=== PATIENT | male | born 1960 | race Caucasian/White ===

== ENCOUNTER → 2018-06-05 | Outpatient (CLI) | payer OTHER ==
--- NOTE | 2018-06-05 17:47 | Diagnostic Imaging Report ---
INDICATION: 57-year-old male with abnormal bone in radiographs. COMPARISON: None. FINDINGS: AP Spine L1-L4: [BMD (g/cm2): 1.453] [T-Score: 1.8] [Z-Score: 1.3] [BMD Previous: N/A] [BMD % Change: N/A] LT Hip Neck: [BMD (g/cm2): 1.116] [T-Score: 0.4] [Z-Score: 0.6] LT Hip Total: [BMD (g/cm2):1.143] [T-Score:0.3] [Z-Score: 0.2] [BMD Previous: N/A] [BMD % Change: N/A] RT Hip Neck: [BMD (g/cm2):1.167] [T-Score:0.7] [Z-Score:1.0] RT Hip Total: [BMD (g/cm2):1.183] [T-score:0.6] [Z-Score:0.5] [BMD Previous:N/A] [BMD % Change:N/A] *Indicates significant change from prior examination based on 95% confidence level. World Health Organization criteria for BMD interpretation classify patients as Normal (T-score at or above -1.0), Osteopenic (T-score between -1.0 and -2.5) or Osteoporotic (T-score at or below -2.5). LIMITATIONS AND MODIFICATION: Degenerative changes of the lumbar spine may falsely elevate bone density. FRACTURE RISK (FRAX SCORE): Not applicable. IMPRESSION: 1. Normal bone mineral density. 2. Baseline examination. 3. See below National Osteoporosis Foundation guidelines on when to potentially initiate pharmacologic therapy. Based on the National Osteoporosis Foundation Guidelines, pharmacologic treatment should be initiated in any of the following, unless clinical conditions suggest otherwise: * Any patient with prior fragility fracture of the hip or vertebrae. A spine fracture indicates 5X risk for subsequent spine fracture and 2X risk for subsequent hip fracture. * Osteoporosis (T-score <-2.5). * Postmenopausal women and men age 50 and older with low bone mass/osteopenia (T-score between -1.0 and -2.5) by DXA and 10-year major osteoporotic fracture greater than 20% or a 10-year probability of hip fracture greater than 3%. These fracture risks are supplied above in the FRAX score, if applicable. * Clinician judgement and/or patient preferences may indicate treatment for people with 10-year fracture probabilities above or below these levels. Dictated on workstation # [id number]
== END ==
LOC: RAD 11:02
PROVIDERS: ATTEND Family Medicine
DX: R93.7 Abnormal findings on diagnostic imaging of other parts of musculoskeletal system (principal)
CPT/HCPCS: 77080

== ENCOUNTER 2021-04-11 06:18 | Outpatient (CLI) | payer OTHER ==
[~2021-04-11] VITALS: Ht 185.4 cm; Wt 112.5 kg
[2021-04-11] MEDS ORDERED: ALLO300T2 PO (12:36)
== END 2021-04-11 16:17 | disposition home or self-care (01) ==
LOC: PREOP 06:18
PROVIDERS: ATTEND Surgery
DX: Z01.818 Encounter for other preprocedural examination (principal)

== ENCOUNTER 2021-04-21 10:27 | Day surgery (SDC) | payer OTHER ==
[2021-04-21] VITALS (10 sets, daily range): BP systolic 106–119; BP diastolic 60–77
[~2021-04-21] VITALS: Ht 185.4 cm; Wt 112.5 kg
[~2021-04-21 10:27] MED LIST: ALLO300T2 PO
[2021-04-21] MEDS ORDERED: NS IV 500 ML 500 ML ONE (10:33)
[2021-04-21] MEDS ORDERED: NS IV 500 ML 500 ML IV PRN (10:45)
[2021-04-21] MEDS ORDERED: fentaNYL INJ 100 MCG/2 ML AMP IVP ONE (10:45)
[2021-04-21] MEDS ORDERED: MIDAZOLAM 5 MG/5 ML (VERSED) VIAL IV ONE (10:45)
[2021-04-21] MEDS ORDERED: LIDOCAINE JELLY 2% 6 ML SYRINGE MM PRN (10:45)
[2021-04-21] MEDS ORDERED: fentaNYL INJ 100 MCG/2 ML AMP ONE ×2 (11:12→11:40)
[2021-04-21] MEDS ORDERED: LIDOCAINE JELLY 2% 6 ML SYRINGE ONE (11:13)
[2021-04-21] MEDS ORDERED: MIDAZOLAM 5 MG/5 ML (VERSED) VIAL ONE ×2 (11:13→11:40)
--- NOTE | 2021-04-21 11:16 | Conscious Sedation/ASA ---
Conscious Sedation Pre-Proced Time 11:00 ASA Score 2 For ASA 3 and 4: Consider anesthesia and medical clearance. Also, for patients with a history of failed moderate sedation consider anesthesia. Airway Lungs Heart ASA score ASA 1: a normal healthy patient ASA 2: a patient with a mild systemic disease (mid diabetes, controlled hypertension, obesity ASA 3: a patient with a severe systemic disease that limits activity (angina, COPD, prior Myocardial infarction) ASA 4: a patient with an incapacitating disease that is a constant threat to life (CHF, renal failure) ASA 5: a moribund patient not expected to survive 24 hrs. (ruptured aneurysm) ASA 6: a declared brain- patient whose organs are being harvested. For emergent operations, add the letter E after the classification Mallampati Classification Grade 2 Sedation Plan Analgesia, Amnesia, Plan communicated to team members, Discussed options with patient/fam, Discussed risks with patient/fam The patient is an appropriate candidate to undergo the planned procedure, sedation, and anesthesia. The patient immediately re-assessed prior to indication. BASSAM BULL MD Apr 21, 2021 11:16
--- NOTE | 2021-04-21 11:17 | Progress Note-Pre Operative ---
Pre-Operative Progress Note H&P Reviewed The H&P was reviewed, patient examined and no changes noted. Date Seen by Provider: Apr 21, 2021 Time Seen by Provider: 11:00 Date H&P Reviewed: Apr 21, 2021 Time H&P Reviewed: 11:00 Pre-Operative Diagnosis: screening BASSAM Ghotra MD Apr 21, 2021 11:17
--- NOTE | 2021-04-21 11:19 | Discharge Inst-Surgical ---
D/C Lap Instructions-JORGITO Follow Up Activity as tolerated High Fiber Diet 25g or more per day Avoid Alcohol, Caffeine, Spicy [place] and Acid foods. Drink 64 fluid oz or more of fluids per day. Symptoms to Report: Fever over 101 degree F, Nausea/Vomiting If any problems/questions: Contact your physician or go to Emergency Room BASSAM BULL MD Apr 21, 2021 11:19
[2021-04-21] MEDS ORDERED: ONDANSETRON 4 MG/2 ML (SDV) Z0FRAN IVP PRN (11:30)
[2021-04-21] MEDS ORDERED: ONDANSETRON 4 MG (ZOFRAN) ORAL DISSOLVE TAB PO PRN (11:30)
--- NOTE | 2021-04-21 11:55 | Progress Note-Post Operative ---
Post-Operative Progess Note Surgeon (s)/Board Member (s) Surgeon BASSAM BULL MD Board Member: none Pre-Operative Diagnosis screening colo Post-Operative Diagnosis mild-mod sigmoid diverticulosis. Procedure & Operative Findings Date of Procedure 04/21/21 Procedure Performed/Findings colonoscopy. Anesthesia Type cs Estimated Blood Loss Estimated blood loss (mL): minimal Specimens/Packing Specimens Removed none BASSAM BULL MD Apr 21, 2021 11:55
--- NOTE | 2021-04-21 16:57 | OPERATIVE REPORT ---
DATE OF SERVICE: 04/21/2021 ATTENDING MORGUE KEEPER: [facility]. PREOPERATIVE DIAGNOSIS: Screening colonoscopy. POSTOPERATIVE DIAGNOSIS: Mild to moderate sigmoid diverticulosis. PROCEDURE PERFORMED: Colonoscopy. SURGEON: Bassam Bull MD. ANESTHESIA: Conscious sedation. ESTIMATED BLOOD LOSS: Minimal. FINDINGS: Same as postoperative diagnoses. DISPOSITION: The patient tolerated the procedure well. INDICATIONS FOR PROCEDURE: The patient is a 60-year-old male known to us. We had done a colonoscopy on him in 2014. He was found to have mild hemorrhoids as well as two small polyps of the rectum as well as mild sigmoid diverticulosis. Biopsy was consistent with a benign hyperplastic polyp. He does not have any direct family history of colon cancer; however, there are several cancers throughout his family with his mother having breast cancer and a maternal grandfather having colon cancer. DESCRIPTION OF PROCEDURE: The patient was brought to the endoscopy suite and laid in the left lateral decubitus position. After adequate IV pain and sedative medications and conscious sedation anesthesia, a digital rectal examination was performed. No significant hemorrhoids were identified. Normal sphincter tone was felt and there were no palpable masses. Prostate gland was palpable and appeared to be normal. The endoscope was then intubated and anus and rectum gently insufflated. The endoscope was then advanced to the valves of [place] of the rectum with no polyps or any neoplasms identified. We then proceeded through the sigmoid colon, where a mild to moderate sigmoid diverticulosis identified. The endoscope was then advanced through the remainder of the descending, transverse, and ascending colon to the cecum, which were normal. No polyps or any neoplasms were identified. The endoscope was then slowly withdrawn while taking a second look and suctioning of residual air with no additional findings. The patient tolerated the procedure well. We will recommend the necessary lifestyle and dietary accommodation including the addition of a fiber supplement, which should equal or exceed 30 grams daily as well as significant amounts of water to promote soft stools on a daily basis. He does not have any first-degree relatives with a history of colon cancer; however, does have a family history of other types of cancer and he may choose between proceeding with followup colonoscopies approximately every 5 years versus 10 years. Job ID: [id number] DocumentID: [id number] Dictated Date: 04/21/2021 11:52:07 Film Vault Supervisor Date: 04/21/2021 16:56:46 Dictated By: BSASAM BULL MD
== END 2021-04-21 12:51 | disposition home or self-care (01) ==
LOC: ENDO 10:27
PROVIDERS: ATTEND Surgery
DX: Z12.11 Encounter for screening for malignant neoplasm of colon (principal); K57.30 Diverticulosis of large intestine without perforation or abscess without bleeding; Z86.010 Personal history of colon polyps; M10.9 Gout, unspecified; Z80.0 Family history of malignant neoplasm of digestive organs; Z80.3 Family history of malignant neoplasm of breast; Z79.899 Other long term (current) drug therapy; Z88.1 Allergy status to other antibiotic agents

== ENCOUNTER → 2022-07-19 | Outpatient (CLI) | payer OTHER ==
--- NOTE | 2022-07-19 10:36 | Diagnostic Imaging Report ---
MRI LT LOWER EXT JOINT W/O TECHNIQUE: Multiplanar, multisequence MR imaging of the without knee was performed without contrast. COMPARISON: None available. INDICATION: Left knee pain FINDINGS: MENISCI Medial meniscus: Free edge truncation in the body and posterior horn of the medial meniscus is most compatible with incomplete radial free edge tear. Posterior root remains intact. Lateral meniscus: Normal. LIGAMENTS ACL: Intact. PCL: Intact. MCL: Intact. LCL: The lateral collateral ligamentous complex is intact. EXTENSOR MECHANISM The extensor mechanism is intact. CARTILAGE Medial compartment: A small region of high-grade partial thickness chondral thinning in the posterior weightbearing aspect of the medial condyle. Lateral compartment: There is a large intracartilaginous osteophytes in the posterior weightbearing aspect of the lateral femoral condyle. Mild thinning throughout the weightbearing aspect of the lateral compartment. Patellofemoral compartment: The patellofemoral articular cartilage is well preserved without high-grade chondromalacia. BONE No fracture, stress fracture or osteonecrosis. SOFT TISSUE No knee effusion or Madrid's cyst. IMPRESSION: 1. Degenerative free edge truncation/incomplete radial tear in the body and posterior horn of the medial meniscus. 2. Degenerative arthritis in the medial and patellofemoral compartments are characterized by areas of partial thickness chondromalacia. Dictated by: Dictated on workstation # [id number]
== END ==
LOC: RAD 07:37
PROVIDERS: ATTEND Nurse Practitioner Family
DX: S83.242A Other tear of medial meniscus, current injury, left knee, initial encounter (principal); M17.12 Unilateral primary osteoarthritis, left knee; X58.XXXA Exposure to other specified factors, initial encounter
CPT/HCPCS: 73721